=== PATIENT | male | born 1980 | race Caucasian/White ===

== ENCOUNTER 2022-05-01 17:50 | Emergency (ER) | payer MEDICAID ==
[~2022-05-01] VITALS: Ht 165.1 cm; Wt 75.0 kg
[2022-05-01 18:01] VITALS: BP 159/109
[2022-05-01] MEDS ORDERED: KETOROLAC 60MG/2ML VIAL IM ONE (23:15)
[2022-05-02] MEDS ORDERED: IBUP-2029 MT (00:26)
== END 2022-05-02 00:35 | disposition home or self-care (01) ==
LOC: ER 17:50
DX: R68.84 Jaw pain (principal)
CPT/HCPCS: 96372; 99283; J1885